=== PATIENT | female | born 1955 | race Caucasian/White ===

== ENCOUNTER 2022-02-02 06:37 | Observation (INO) ==
--- NOTE | 2022-01-04 14:46 | PAT Medication Instructions ---
Medication Instructions Date of Service January 04, 2022 Home Medications acetaminophen 500 mg tablet 1,000 mg PO TID ascorbate calcium (vitamin C) 500 mg tablet 500 mg PO QAM atenolol 50 mg tablet 50 mg PO QAM biotin 1 mg tablet 1 mg PO QAM cetirizine 10 mg tablet (Zyrtec) 10 mg PO QAM cholecalciferol (vitamin D3) 25 mcg (1,000 unit) tablet (Vitamin D3) 25 mcg PO QAM cyanocobalamin (vitamin B-12) 1,000 mcg tablet (Vitamin B-12) 1,000 mcg PO QAM duloxetine 60 mg capsule,delayed release (Cymbalta) 60 mg PO QAM glipizide 10 mg tablet 10 mg PO BID lisinopril 20 mg tablet 20 mg PO QAM loratadine 10 mg tablet 10 mg PO QAM pantoprazole 40 mg tablet,delayed release (Protonix) 40 mg PO BID rosuvastatin 20 mg tablet (Crestor) 20 mg PO HS semaglutide 1 mg/dose (2 mg/1.5 mL) subcutaneous pen injector 1 mg SUBCUT WK Continue as directed semaglutide 1 mg/dose (2 mg/1.5 mL) subcutaneous pen injector 1 mg SUBCUT WK (not day of surgery) STOP taking 2 weeks before surgery biotin 1 mg tablet 1 mg PO QAM DO NOT take the morning of surgery ascorbate calcium (vitamin C) 500 mg tablet 500 mg PO QAM atenolol 50 mg tablet 50 mg PO QAM cetirizine 10 mg tablet (Zyrtec) 10 mg PO QAM cholecalciferol (vitamin D3) 25 mcg (1,000 unit) tablet (Vitamin D3) 25 mcg PO QAM cyanocobalamin (vitamin B-12) 1,000 mcg tablet (Vitamin B-12) 1,000 mcg PO QAM glipizide 10 mg tablet 10 mg PO BID lisinopril 20 mg tablet 20 mg PO QAM loratadine 10 mg tablet 10 mg PO QAM Take morning of surgery With a small sip of water, OTHERWISE NOTHING TO EAT OR DRINK AFTER MIDNIGHT: acetaminophen 500 mg tablet 1,000 mg PO TID(okay to take up to 4 hours prior to surgery if needed) duloxetine 60 mg capsule,delayed release (Cymbalta) 60 mg PO QAM pantoprazole 40 mg tablet,delayed release (Protonix) 40 mg PO BID Take evening before surgery acetaminophen 500 mg tablet 1,000 mg PO TID(if needed) glipizide 10 mg tablet 10 mg PO BID pantoprazole 40 mg tablet,delayed release (Protonix) 40 mg PO BID rosuvastatin 20 mg tablet (Crestor) 20 mg PO HS Other Notes If you have any questions please call us at [phone] or [phone] or [phone] or [phone]
--- NOTE | 2022-01-08 13:33 | Anesthesiology Consultation ---
Date of Service January 08, 2022 Assessment & Plan (1) Encounter for pre-operative examination: - COVID screening: Per assessment on 01/08: No known COVID-19 positive contacts or current COVID-19 related symptoms. Travel screen- negative. Surgeon arranging preop COVID testing. Awaiting results. - Check BSG AM DOS Chart Review Chart Review: Acceptable Risk for Surgery and Patient seen in Pre Admission Testing History Surgery Operation Date: 02/02/22 09:30 Proposed Procedures p Left Total Hip Arthroplasty - Jeremy Montejo DO Height/Weight Height: 5 ft 8 in Weight: 81.2 kg Allergies Allergy/AdvReac Type Severity Reaction Status Date / Time Corticosteroids Allergy Intermediate heart Verified 01/04/22 09:37 (Glucocorticoids) palpitations, severe upset stomach morphine Allergy Intermediate severe Verified 01/04/22 09:37 itching and felt like "bugs were crawling on me" meloxicam [From Mobic] AdvReac Mild irritates Verified 01/04/22 09:37 stomach Medications Home Medications Medication Instructions Recorded Confirmed Last Taken acetaminophen 500 mg tablet 1,000 mg PO TID 01/04/22 01/04/22 Unknown ascorbate calcium (vitamin C) 500 500 mg PO QAM 01/04/22 01/04/22 Unknown mg tablet atenolol 50 mg tablet 50 mg PO QAM 01/04/22 01/04/22 Unknown biotin 1 mg tablet 1 mg PO QAM 01/04/22 01/04/22 Unknown cetirizine 10 mg tablet (Zyrtec) 10 mg PO QAM 01/04/22 01/04/22 Unknown cholecalciferol (vitamin D3) 25 25 mcg PO QAM 01/04/22 01/04/22 Unknown mcg (1,000 unit) tablet (Vitamin D3) cyanocobalamin (vitamin B-12) 1,000 mcg PO QAM 01/04/22 01/04/22 Unknown 1,000 mcg tablet (Vitamin B-12) duloxetine 60 mg capsule,delayed 60 mg PO QAM 01/04/22 01/04/22 Unknown release (Cymbalta) glipizide 10 mg tablet 10 mg PO BID 01/04/22 01/04/22 Unknown lisinopril 20 mg tablet 20 mg PO QAM 01/04/22 01/04/22 Unknown loratadine 10 mg tablet 10 mg PO QAM 01/04/22 01/04/22 Unknown pantoprazole 40 mg tablet,delayed 40 mg PO BID 01/04/22 01/04/22 Unknown release (Protonix) rosuvastatin 20 mg tablet (Crestor) 20 mg PO HS 01/04/22 01/04/22 Unknown semaglutide 1 mg/dose (2 mg/1.5 1 mg SUBCUT WK 01/04/22 01/04/22 Unknown mL) subcutaneous pen injector Past Medical History Medical History Allergic rhinitis Chronic back pain Diabetes mellitus, type 2 NIDDM Fibromyalgia Reason for cymbalta GERD (gastroesophageal reflux disease) Occasional Hiatal hernia History of COVID-19 06/2020 > symptoms at time: sore throat, ear pain > resolved Hyperlipidemia Hypertension Osteopenia Temporomandibular joint disorder Follows with dentist Has OTC mouth guard, no locking Exercise / Class Metabolic Activity II 4-5 Yardwork/Stairs/Walk up hill (one FS (no CP, no SOB)) Past Family History Family History Other No family history of adverse response to anesthesia Past Surgical History Surgical History History of appendectomy History of bilateral carpal tunnel release History of section x2 History of colonoscopy History of esophagogastroduodenoscopy (EGD) History of exploratory laparotomy for adhesions from c-sections History of hip surgery (~1999) left--pt states she had a cyst removed from her bone and a metal plate in place History of laparoscopy for endometriosis History of left breast biopsy benign History of tooth extraction History of total hysterectomy with bilateral salpingo-oophorectomy (BSO) Past Anesthesia History No Hx of Anesthesia Complications and No Family Hx of Anesthesia Complications History of PONV No Hx of PONV and No Hx of Motion Sickness Social History Smoking Status: Never smoker Do You Dip or Chew Tobacco: No Hx Alcohol Use: Yes alcohol intake frequency: holidays/special occasions only Hx Substance Use: No substance use type: does not use Review of Systems Patient denies chest pain, shortness of breath, dyspnea on exertion, fever, chills, cough, wheezing, palpitations. Physical Exam Vital Signs VITALS BP 103/72 P 85 TEMP 98.5 SP02 98%RA RESP 16 PHYSICAL Full cervical extension range of motion. Full TMJ range of motion. TMD 3.5 finger breaths Mallampati Score 1 Dentition: right upper side missing, upper/lower front repair Lungs: clear throughout to auscultation Cardiac: regular rate and rhythm, no murmurs noted Spine: normal Carotid arteries: negative bruit Extremities: no edema Lab Results Anesthesia Preop Results Results Anesthesia Widget: WBC 6.73 K/uL (4.8-10.8) 01/08/22 Hgb 13.4 g/dL (12.0-16.0) 01/08/22 Hct 40.6 % (37-47) 01/08/22 Plt 260 K/uL (130-400) 01/08/22 Na 141 mmol/L (136-145) 01/08/22 K 3.8 mmol/L (3.5-5.1) 01/08/22 Cl 106 mmol/L (98-107) 01/08/22 CO2 27 mmol/L (21-32) 01/08/22 BUN 16 mg/dl (6-23) 01/08/22 Creat 0.84 mg/dl (0.6-1.2) 01/08/22 Glucose Level 110 mg/dl (70-99(Fasting)) H 01/08/22 PT 10.9 Seconds (9.0-12.0) 01/08/22 PTT 23.6 Seconds (21.0-31.0) 01/08/22 INR 1.0 (0.9-1.1) 01/08/22 HA1c 6.4 % (4.5-5.6) H 01/08/22 Urine Color Dark Yellow 01/08/22 Urine Appearance Clear (Clear) 01/08/22 Urine pH 5.0 (4.5-7.5) 01/08/22 Urine Specific [place] 1.033 (1.000-1.030) H 01/08/22 Urine Protein Trace (Negative) H 01/08/22 Urine Glucose (UA) Negative (Negative) 01/08/22 Urine Ketones Trace (Negative) H 01/08/22 Urine Blood Negative (Negative) 01/08/22 Urine Nitrite Negative (Negative) 01/08/22 Urine Bilirubin 1+ (Negative) H 01/08/22 Urine Urobilinogen Negative (Negative) 01/08/22 Urine Leukocyte Esterase Trace (Negative) H 01/08/22 Urine WBC (Auto) 1-5 /hpf (0-5) 01/08/22 Urine RBC (Auto) 5-10 /hpf (0-4) H 01/08/22 Urine Hyaline Casts (Auto) 1-5 /lpf (0-5) 01/08/22 Urine Epithelial Cells (Auto) >30 /lpf (0-5) H 01/08/22 Urine Bacteria (Auto) Negative (Negative) 01/08/22 Blood Type A Positive 01/08/22 Antibody Screen NEGATIVE 01/08/22 Testing Electrocardiogram Date: 01/08/22 SR with first degree AVB at 79bpm. Otherwise normal ECG. Chest X-Ray Date: 01/08/22 Findings: + NAD
--- NOTE | 2022-02-01 14:37 | History & Physical Report ---
Date of Service February 01, 2022 Assessment & Plan (1) Osteoarthritis of left hip: Plan: Schedule a left total hip arthroplasty, removal DHS implant for 02/02/2022. All potential risks, benefits, complications, alternatives, and rehab have been discussed with the patient and she wishes to proceed. Plan for aspirin 81 mg twice daily x4 weeks for postoperative DVT prophylaxis. (2) Retained orthopedic hardware: History of Present Illness Chief Complaint: Left hip pain Primary Care Provider: NO PCP This is a patient who previously undergone what appears to be a left hip core decompression of the femoral head. She denies any previous injury to the left. She presented with left groin pain and a history of an implant placed within the femoral head. CT scan noted arthritic changes at the hip joint. She is now being set up for total hip arthroplasty. Allergies Allergy/AdvReac Type Severity Reaction Status Date / Time Corticosteroids Allergy Intermediate heart Verified 01/04/22 09:37 (Glucocorticoids) palpitations, severe upset stomach morphine Allergy Intermediate severe Verified 01/04/22 09:37 itching and felt like "bugs were crawling on me" meloxicam [From Mobic] AdvReac Mild irritates Verified 01/04/22 09:37 stomach Home Medications Medication Instructions Recorded Confirmed Type acetaminophen 500 mg tablet 1,000 mg PO TID 01/04/22 01/04/22 History ascorbate calcium (vitamin C) 500 500 mg PO QAM 01/04/22 01/04/22 History mg tablet atenolol 50 mg tablet 50 mg PO QAM 01/04/22 01/04/22 History biotin 1 mg tablet 1 mg PO QAM 01/04/22 01/04/22 History cetirizine 10 mg tablet (Zyrtec) 10 mg PO QAM 01/04/22 01/04/22 History cholecalciferol (vitamin D3) 25 25 mcg PO QAM 01/04/22 01/04/22 History mcg (1,000 unit) tablet (Vitamin D3) cyanocobalamin (vitamin B-12) 1,000 mcg PO QAM 01/04/22 01/04/22 History 1,000 mcg tablet (Vitamin B-12) duloxetine 60 mg capsule,delayed 60 mg PO QAM 01/04/22 01/04/22 History release (Cymbalta) glipizide 10 mg tablet 10 mg PO BID 01/04/22 01/04/22 History lisinopril 20 mg tablet 20 mg PO QAM 01/04/22 01/04/22 History loratadine 10 mg tablet 10 mg PO QAM 01/04/22 01/04/22 History pantoprazole 40 mg tablet,delayed 40 mg PO BID 01/04/22 01/04/22 History release (Protonix) rosuvastatin 20 mg tablet (Crestor) 20 mg PO HS 01/04/22 01/04/22 History semaglutide 1 mg/dose (2 mg/1.5 1 mg SUBCUT WK 01/04/22 01/04/22 History mL) subcutaneous pen injector Past Med/Surg History Medical History Allergic rhinitis Chronic back pain Diabetes mellitus, type 2 NIDDM Fibromyalgia Reason for cymbalta GERD (gastroesophageal reflux disease) Occasional Hiatal hernia History of COVID-19 06/2020 > symptoms at time: sore throat, ear pain > resolved Hyperlipidemia Hypertension Osteopenia Temporomandibular joint disorder Follows with dentist Has OTC mouth guard, no locking Surgical History History of appendectomy History of bilateral carpal tunnel release History of section x2 History of colonoscopy History of esophagogastroduodenoscopy (EGD) History of exploratory laparotomy for adhesions from c-sections History of hip surgery (~1999) left--pt states she had a cyst removed from her bone and a metal plate in place History of laparoscopy for endometriosis History of left breast biopsy benign History of tooth extraction History of total hysterectomy with bilateral salpingo-oophorectomy (BSO) Family History Other No family history of adverse response to anesthesia Social History Smoking Status: Never smoker Second Hand Exposure: No; Hx Alcohol Use: Yes Hx Substance Use: No Preferred Language: Sinhala Communication Ability: Effective Bi Data Architect Required: No Beliefs That Will Affect Care: None Current Living Situation: Spouse Feels Safe at Home: Yes Assistive Devices: Glasses Physical Exam Constitutional: well developed and well nourished; no acute distress ENMT: external ear and nose normal, oropharynx normal Neck: trachea midline Respiratory: normal respiratory effort, lungs clear to auscultation Cardiovascular: Rate/Rhythm: regular rate and regular rhythm Gastrointestinal (Abdomen): normal bowel sounds, soft, nontender, no hepatosplenomegaly Musculoskeletal: Hip: + surgical incision (Healed incision lateral hip), + limited ROM of hip (Left internal and external rotation), + joint line tenderness (Left groin) and + JOSS test positive (Left); no skin erythema and no ecchymosis Skin: no rashes, warm and dry Trauma: no evidence of skin trauma Neurologic: normal touch/pain/proprioception Psychiatric: A+Ox3, euthymic affect Speech: normal rate/rhythm/volume of speech Lymphatic: no cervical or axillary lymphadenopathy
[~2022-02-02 06:37] MED LIST: ACETAMINOPHEN 500 MG TAB PO SCH; BUPIVACAINE 0.5 % 5 MG/1 ML PF 10ML VIAL ONE; CeleBREX 200 MG CAP PO SCH; FAMOTIDINE 20 MG TAB PO SCH; GABAPENTIN 300 MG CAP PO SCH; LR 500ML BOLUS, THEN 15ML/HR IV SCH; METOCLOPRAMIDE HCL 10 MG TABLET PO SCH; ROPIVACAINE 0.5% HCL/PF 150 MG, BUPIVACAINE 0.75% MPF 20 ML, EPINEPHrine 30MG/30ML (OR ... INFIL SCH; TRANEXAMIC ACID 1,000 MG **IV Intra-op IV SCH; TRANEXAMIC ACID 1,000 MG **IV Pre-op IV SCH; ceFAZolin 2000MG 2,000 MG/15 ML SYR IV SCH; dexAMETHasone 4 MG TAB PO SCH
[2022-02-02] MEDS ORDERED: PROPOFOL IV EMULSION 10 MG/ML 20 ML VIAL IV ONE ×5 (06:58→11:54)
[2022-02-02] MEDS ORDERED: fentaNYL citrate 100 MCG/2 ML VIAL ONE (06:58)
[2022-02-02] MEDS ORDERED: LIDOCAINE 2% 2 ML VIAL/AMP(20MG/ML) INFIL ONE (06:58)
[2022-02-02] MEDS ORDERED: MIDAZOLAM HCL 1 MG/ML 2ML VIAL ONE (06:58)
--- NOTE | 2022-02-02 07:21 | History & Physical Bridge Note ---
Date of Service February 02, 2022 History & Physical Bridge Note I have examined the patient, reviewed the History & Physical and in the interval since the performance of the History & Physical I have noted the following changes of clinical significance: no changes noted
[2022-02-02] MEDS ORDERED: ORTHO JOINT ANESTHETIC ONE (08:03)
[2022-02-02] MEDS ORDERED: ATROPINE SULFATE 0.1 MG/ML 10ML SYR IV PRN (08:18)
[2022-02-02] MEDS ORDERED: ONDANSETRON INJ 2 MG/ML 2 ML VIAL IV PRN ×2 (08:18→14:37)
[2022-02-02] MEDS ORDERED: fentaNYL citrate 100 MCG/2 ML VIAL IV PRN (08:18)
[2022-02-02] MEDS ORDERED: ePHEDrine sulfate 50 MG/ML AMP IV PRN (08:18)
[2022-02-02] MEDS ORDERED: ceFAZolin 330 MG/ML 1 GM VIAL ONE (08:51)
[2022-02-02] MEDS ORDERED: KETAMINE 50 MG/5 ML SYRINGE ONE (10:06)
[2022-02-02] MEDS ORDERED: LABETALOL HCL IV 5 MG/ML 20ML IV ONE ×2 (10:21→10:57)
[2022-02-02] MEDS ORDERED: ceFAZolin 1000MG 1,000 MG/7.5 ML SYR IV ONE (11:43)
[2022-02-02] MEDS ORDERED: ONDANSETRON INJ 2 MG/ML 2 ML VIAL ONE (11:53)
--- NOTE | 2022-02-02 12:30 | Post Operative Brief Note ---
Immediate Post Op Note v1 Date of Surgery February 02, 2022 Pre & Post Diagnosis Operation Date: 02/02/22 08:45 Pre-Op Diagnosis: Left Hip posttraumatic osteoarthritis, painful hip hardware DHS sideplate and screws Post-Op Diagnosis: Left Hip posttraumatic osteoarthritis, painful hip hardware DHS sideplate and screws I identified the patient and participated in the time-out.: Yes Procedure Operation Date: 02/02/22 08:45 Actual Procedures p 1. Left Cemented Total Hip Arthroplasty with Ethel Accolade C cemented hip stem, Trident X3 10 degree polyethylene, Trident II 52 mm acetabular shell, 6.5 mm locking screws x2, Biolox delta 36 mm x +5 mm femoral head and distal cement spacer. 2. Hardware Removal of the painful hardware DHS sideplate and screws Jeremy Montejo DO Surgeon Jeremy Montejo DO Relay Shop Supervisor Eric Perez PA-C Estimated Blood Loss 200 Findings Consistent with Post-Op Diagnosis Drains Hemovac Drain (dual trocar) Anesthesia Type Spinal MAC Complications none Disposition Accompanied Patient To Recovery: No Overlapping Procedure I was present for: the critical portions of procedure. I was immediately available: during the entire case.
--- NOTE | 2022-02-02 13:41 | Anesthesiology Progress Note ---
Date of Service February 02, 2022 Anesthesia Post Procedure Vital Signs Vital Signs: Temp Pulse Resp BP Pulse Ox 02/02/22 13:15 76 14 100/67 93 02/02/22 13:05 98.8 F 69 13 117/66 99 02/02/22 12:55 80 14 111/63 100 02/02/22 12:45 82 20 119/79 100 02/02/22 12:35 75 13 119/60 100 02/02/22 12:29 97.5 F L 80 12 106/70 95 02/02/22 07:08 98.1 F 82 16 129/73 96 Pain Intensity Left Hip: Pain Intensity: 4 Transfer of Care Handoff Completed per policy Notes Mental Status: alert / awake / arousable and participated in evaluation Patient Amnestic to Procedure: Yes Nausea / Vomiting: adequately controlled Pain: adequately controlled Airway Patency, RR, SpO2: stable & adequate BP & HR: stable & adequate Hydration State: stable & adequate Neuraxial Anesthesia: was administered and sensory block is resolving Anesthetic Complications: no major complications apparent and Pt Satisfied with anesthetic care
--- NOTE | 2022-02-02 13:58 | XRay Report ---
XR hip 1V LT w pelvis CLINICAL HISTORY: IN PACU - A/P PELVIS and LATERAL HIP . Status post left total hip replacement COMPARISON STUDY: No previous studies for comparison. TECHNIQUE: 2 left hip views FINDINGS: The patient is status post total hip replacement. The prosthetic components are in anatomic alignment with no acute abnormality seen. Skin celine are seen from the recent procedure. IMPRESSION: 1. Status post total hip replacement ACT 112: Negative or not required by law. Electronically signed by: Herman Felix M.D. 02/02/2022 1:57 PM
[2022-02-02] MEDS ORDERED: HYDROmorphone INJ 0.5 MG/0.5 ML SYR IV PRN (14:37)
[2022-02-02] MEDS ORDERED: PHARMACY GLYCEMIC MGMT CONSULT PRN (14:37)
[2022-02-02] MEDS ORDERED: NALOXONE HCL 0.4 MG/1 ML VIAL/CARP IV PRN (14:37)
[2022-02-02] MEDS ORDERED: diphenhydrAMINE 50 MG/ML VIAL IV PRN (14:37)
[2022-02-02] MEDS ORDERED: bisacodyL 10 MG SUPP PR PRN (14:37)
[2022-02-02] MEDS ORDERED: MAGNESIUM HYDROXIDE SUSP 30 ML UDC PO PRN (14:37)
--- NOTE | 2022-02-02 14:51 | Pharmacy Report ---
Pharmacy Glycemic Short Note 2 - Date of Service February 02, 2022 - Glycemic Short BSG Results (Last 24 hours): 02/02/22 02/02/22 07:08 12:34 POC Glucose 108 H 209 H OUTPATIENT ANTIDIABETIC REGIMEN: * glipizide 10 mg PO BID * Ozempic 1 mg SQ weekly * HbA1C = 6.4% (01/08/22) ASSESSMENT: * Ms Salgado is a 66 y/o F with a PMH of T2DM who presents for L hip surgery. Patient received dexamethasone 8 mg PO prior to surgery. * Patient's preop BSGs are 108 mg/dL and over surgery was 209 mg/dL. * For steroid hyperglycemia, will start NPH 20 units (0.2 units/kg) x 1. Lower dose utilized since not given with steroids. * Will utilize Novolog weight-based stress of 3. Overnight checks for 24 hour glucose control. * Hold glipizide while hospitalized. PLAN FOR INPATIENT GLYCEMIC CONTROL: * Hold outpatient oral diabetes medications * Basal insulin * NPH 20 units SQ x 1 * Bolus insulin * NovoLog per scale ACHS or Q6hrs while NPO * Goal Range: Low 110 mg/dL - High 140 mg/dL * Correction Factor: 20 mg/dL/unit * Nutritional / Prandial insulin per carb ratio of 1 unit per 6 grams CHO consumed
[2022-02-02] MEDS: ACETAMINOPHEN 500 MG TAB PO SCH ×2 (15:13→21:01)
[2022-02-02] MEDS: SODIUM CHLORIDE 0.9% 1000ML 1,000 ML IV SCH (15:14)
[2022-02-02] MEDS ORDERED: GLUCOSE 40% GEL 15 GM TUBE PO PRN (15:15)
[2022-02-02] MEDS ORDERED: GLUCAGON FOR INJ 1 MG VIAL IM PRN (15:15)
[2022-02-02] MEDS ORDERED: CARBOHYDRATES FOR HYPOGLYCEMIA PO PRN (15:15)
[2022-02-02] MEDS ORDERED: GLUCOSE 10 TABS/TUBE PO PRN (15:15)
[2022-02-02] MEDS ORDERED: DEXTROSE 50% 50 ML SYRINGE IV PRN (15:15)
[2022-02-02] MEDS ORDERED: NovoLIN-N (NPH) PER UNIT CHARGE SQ ONE (16:30)
--- NOTE | 2022-02-02 16:55 | Operative Report (OR) ---
DATE OF PROCEDURE: 02/02/2022. PREOPERATIVE DIAGNOSES: 1. Left hip posttraumatic osteoarthritis. 2. Painful hip hardware, DHS side plate and screws. POSTOPERATIVE DIAGNOSES: 1. Left hip posttraumatic osteoarthritis. 2. Painful hip hardware, DHS side plate and screws. PROCEDURE: 1. Left cemented total hip arthroplasty with Ethel Accolade C cemented hip stem, Trident X3 10-deg ree polyethylene, Trident II 52 mm acetabular shell, 6.5 mm locking screws x2, Biolox Delta 36 mm x + 5 mm femoral head and distal cement spacer. 2. Hardware removal of painful hardware DHS side plate and screws. SURGEON: Jeremy Montejo DO. BUSINESS CONTINUITY DIRECTOR: Eric Perez PA-C who was present for patient positioning, sterile prep and drape, m anagement of retractors and instruments. He was present through the critical portions of the case inc luding wound closure, application of sterile dressing and transport of the patient to recovery. ANESTHESIA: Spinal MAC with local. SPECIMENS: Bone and tissue, left hip. DRAINS: Hemovac x2. COMPLICATIONS: None. BLOOD LOSS: 200 mL PERTINENT HISTORY: This is a 66-year-old female who had a prior ORIF of a left proximal femoral frac ture. She healed from the fracture and did notably well for the last several years; however, then be [place] having hip pain which was progressive and worsening in nature over the last 2 years. The patient then presented to the office. She had radiographs and a CT scan, noted to have posttraumatic osteoa rthritis. She failed all conservative measures including physical therapy, anti-inflammatories, rest , observation, physician-directed home exercises, weight loss and shoe wear modification including us e of an assistive device. The patient's radiographs demonstrate sclerosis, loss of joint space, lisa inal osteophytes, subchondral sclerosis. The patient was then scheduled for surgery as indicated wit h the removal of the hardware and total hip arthroplasty. All potential risks, benefits, complications, alternatives, rehab potential for incomplete relief sym ptoms, need for further surgery, DVT, PE, , persistent pain, swelling, scarring, weakness, neuro vascular injury, wound complications, hardware failure, nonunion, malunion, bone fracture were discus sed with the patient. The patient decided to proceed with the procedure as indicated. PROCEDURE: The patient was taken to the Operating Suite and placed supine on the Operating Room table after identification of the consent and identification of the proper operative site the patient was sedated. The patient had previously received a spinal epidural anesthetic. The patient was then place d in the left lateral decubitus position with the affected side up and Stulberg positioning device th en used to maintain lateral position of the patient. All bony prominences were properly padded and pr otected. Axillary roll was placed as standard and the leg lengths were determined to be essentially e qual and then the left hip was then sterilely prepped and draped in the usual fashion. 10-blade scalp el incision was made laterally over the greater trochanter. The incision was deepened through the sub cutaneous tissue and meticulous hemostasis with electrocautery. Further deepening of the wound throug h the layer of the fascia was performed with electrocautery and iliotibial band was then incised with electrocautery. Next, Charnley retractor was placed bother anteriorly and posteriorly at the level o f the gluteus tendon. Next, electrocautery was used to make an incision in the vastus lateralis and t hen sweep was made toward the anterior aspect of the patient along the course of the femoral neck and head. Abductor split was then completed. The gluteus minimus and capsule were then incised and then soft tissue was dissected anteriorly. Next as the soft tissue was dissected anteriorly the lesser tro chanter was clearly identified and hip was dislocated with relative ease. Hypertrophic osteophytes we re noted circumferentially. The hip joint was noted to be noticeably tight. Next the sagittal saw was used to resect the proximal portion of the femoral neck and head approximately one fingerbreadth pro ximal to the lesser trochanter. Head was then removed and next the labrum was excised from the acetab ulum with a 27 blade scalpel and long forceps. Next the wound was irrigated with pulsatile lavage and the pulvinar was then excised from the acetabulum. Appropriate retractors were placed anteriorly sup eriorly and posteriorly. Next initial acetabular reamer was placed 44 mm medialized to the medial wal l and then sequential reaming was performed to size 56 mm. Trial cage was then placed and noted to be stable with excellent fit. Next the wound was irrigated with pulsatile lavage with bacitracin additi ve and 56 mm [place] trident PSL cup was impacted and then two 6.5 mm locking screws were used to sta bilize the acetabular shell. Next Trident X3 10-degree polyethylene, Trident II 52 mm acetabular obey l was impacted into the shell. Lap sponge was placed over to protect it. Next, attention was turned t oward the proximal femur. Box osteotome was used to resect proximal portion of bone followed by first pass small reamer. Next, sequential broaching was performed up to size 5 and the 5 trial was placed followed by +0 36 mm trial head. Next, it was reduced and had excellent fit and feel with minimal maday ck and excellent stability in all planes and range of motion. Leg lengths were restored and next all trial implants were removed. The wound was copiously irrigated with pulsatile lavage and size 5 Stryk er Accolade C cemented hip stem was impacted. Next, Biolox Delta 36 mm x +5 mm femoral head and dista l cement spacer was impacted. The construct was reduced. Range of motion was performed and noted to b e completely stable with excellent range of motion, improved to greater degree than prior to surgery. Two 10 [place]kin[place] single Hemovac drains were placed exiting anterolaterally. Wound was irrigated with pu lsatile lavage. Next a #5 Tycron suture was used to close the capsule and gluteus minimum via two sma ll bone gunnels made with 2.4 mm drill bit in the greater trochanter. After Tycron closure was comple [place] and noted to be stable then 10 Burkinan drains were placed followed by closure of the vastus latera lis and the gluteus medius. This was closed with #1 Vicryl sutures. Next, the iliotibial band was leslie sed using interrupted [id number] #1 Vicryl sutures. Next, final irrigation was performed with pu lsatile lavage and dermis was closed using buried interrupted 2-0 Vicryl suture. The skin was closed with skin celine. Sterile compressive dressing was applied. The patient was then placed supine and krys gomes to recovery in stable condition. Job ID: [id number]
[2022-02-02] MEDS: oxyCODONE HCL IR 5 MG TAB (IMMEDIATE RELEASE) PO PRN ×2 (17:03→18:49)
--- NOTE | 2022-02-02 17:36 | Consultation ---
Date of Consultation February 02, 2022 Assessment & Plan (1) Osteoarthritis of left hip: (2) Retained orthopedic hardware: OA left hip s/p left total hip arthroplasty and removal of DHS implant today 02/02/22 - further management including diet, DVT ppx, pain management and activities per primary team Actual procedure 02/02/22- Left cemented total hip arthroplasty with [place] Accolade C cemented hip stem, Trident X3 10-degree polyethylene, Trident II 52 mm acetabular shell, 6.5 mm locking screws x2, Biolox Delta 36 mm x +5 mm femoral head and distal cement spacer; Hardware removal of painful hardware DHS side plate and screws DM-2, well controlled- A1c 6.4 on 01/08. on glipizide and ozempic at home- will hold. Started on insulin- being managed by glycemic pharmacist - States she gets symptomatic hypoglycemia few times a week at home with BG in high 60s and 70s- recommended to follow up with PCP for further diabetic management- Goal is to safely lower A1c with as few hypoglycemic events as possible- Patient verbalized understanding. GERD- on PPI HTN- on lisinopril, tenormin with hold parameters HLD- on statin DVT ppx- on ASA bid per primary team Dispo- per primary team History of Present Illness Reason for Consultation: Post op management Attending Physician: Jeremy Montejo DO History of Present Illness 66-year-old female with h/o prior ORIF of a left proximal femoral fracture with left hip who did well for several years but then started having progressively worsening hip pain over the past 2 years for which she was seen in the office and imagings showed posttraumatic osteoarthritis. She failed all conservative measures and hence was scheduled for elective surgery today with the removal of the hardware and total hip arthroplasty. She was seen at bedside post operatively. She is doing fine. Pain is relatively controlled. Tolerating oral intake well. No N/V. No chest pain or shortness of breath. Denies any cardiopulmonary issues. Denies any VTE. Her medications were reviewed. Allergies Allergy/AdvReac Type Severity Reaction Status Date / Time Corticosteroids Allergy Intermediate heart Verified 02/02/22 07:02 (Glucocorticoids) palpitations, severe upset stomach morphine Allergy Intermediate severe Verified 02/02/22 07:02 itching and felt like "bugs were crawling on me" meloxicam [From Mobic] AdvReac Mild irritates Verified 02/02/22 07:02 stomach Home Medications Medication Instructions Recorded Confirmed Type acetaminophen 500 mg tablet 1,000 mg PO TID 01/04/22 02/02/22 History ascorbate calcium (vitamin C) 500 500 mg PO QAM 01/04/22 02/02/22 History mg tablet atenolol 50 mg tablet 50 mg PO QAM 01/04/22 02/02/22 History biotin 1 mg tablet 1 mg PO QAM 01/04/22 02/02/22 History cetirizine 10 mg tablet (Zyrtec) 10 mg PO QAM 01/04/22 02/02/22 History cholecalciferol (vitamin D3) 25 25 mcg PO QAM 01/04/22 02/02/22 History mcg (1,000 unit) tablet (Vitamin D3) cyanocobalamin (vitamin B-12) 1,000 mcg PO QAM 01/04/22 02/02/22 History 1,000 mcg tablet (Vitamin B-12) duloxetine 60 mg capsule,delayed 60 mg PO QAM 01/04/22 02/02/22 History release (Cymbalta) glipizide 10 mg tablet 10 mg PO BID 01/04/22 02/02/22 History lisinopril 20 mg tablet 20 mg PO QAM 01/04/22 02/02/22 History loratadine 10 mg tablet 10 mg PO QAM 01/04/22 02/02/22 History pantoprazole 40 mg tablet,delayed 40 mg PO BID 01/04/22 02/02/22 History release (Protonix) rosuvastatin 20 mg tablet (Crestor) 20 mg PO HS 01/04/22 02/02/22 History semaglutide 1 mg/dose (2 mg/1.5 1 mg SUBCUT WK 01/04/22 02/02/22 History mL) subcutaneous pen injector Patient History Medical History Allergic rhinitis Chronic back pain Diabetes mellitus, type 2 NIDDM Fibromyalgia Reason for cymbalta GERD (gastroesophageal reflux disease) Occasional Hiatal hernia History of COVID-19 06/2020 > symptoms at time: sore throat, ear pain > resolved Hyperlipidemia Hypertension Osteopenia Temporomandibular joint disorder Follows with dentist Has OTC mouth guard, no locking Surgical History History of appendectomy History of bilateral carpal tunnel release History of section x2 History of colonoscopy History of esophagogastroduodenoscopy (EGD) History of exploratory laparotomy for adhesions from c-sections History of hip surgery (~1999) left--pt states she had a cyst removed from her bone and a metal plate in place History of laparoscopy for endometriosis History of left breast biopsy benign History of tooth extraction History of total hysterectomy with bilateral salpingo-oophorectomy (BSO) Family History Other No family history of adverse response to anesthesia Social History Smoking Status: Never smoker Second Hand Exposure: No; Do You Dip or Chew Tobacco: No; Tobacco Cessation Education Requested by Patient: No Hx Alcohol Use: Yes Hx Substance Use: No Preferred Language: Greenlandic Communication Ability: Effective 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 Beliefs That Will Affect Care: None Current Living Situation: Spouse Other Information That Helps Us Care for You: No Feels Safe at Home: Yes Safety Concerns: Feels Safe At This Time Assistive Devices: Glasses Assistive Devices Comment: reading glasses Review of Systems Review of Systems: All systems reviewed & are unremarkable except as noted in Subjective Physical Exam Physical Exam: General: Lying comfortably in bed, not in distress, on room air HEENT: EOMI, SHAWNA, MMM Chest: Clear breath sounds bilaterally, no wheezes or crackles CVS: Regular rate and rhythm, normal heart sounds, no murmur Abdomen: Soft, non tender, not distended, normal bowel sounds Neuro: Awake, alert, oriented, conversing well, non focal Extremities: Left hip covered with dressing and ice pack, hemovac suction in place with some output Results & Data ([facility]) Vital Signs (Past 12 Hours) Vital Signs Temp Pulse Pulse Resp BP BP Pulse Ox 02/02/22 17:12 36.5 C 88 16 108/62 95 02/02/22 16:10 36.7 C 79 16 101/65 96 02/02/22 15:02 36.7 C 84 16 112/66 96 02/02/22 14:36 36.4 C L 78 16 95/59 L 95 02/02/22 14:05 36.6 C 83 16 100/60 96 02/02/22 13:50 36.8 C 78 20 106/60 95 02/02/22 13:35 81 20 103/60 94 02/02/22 13:25 79 20 96/65 L 98 02/02/22 13:15 76 14 100/67 93 02/02/22 13:05 37.1 C 69 13 117/66 99 02/02/22 12:55 80 14 111/63 100 02/02/22 12:45 82 20 119/79 100 02/02/22 12:35 75 13 119/60 100 02/02/22 12:29 36.4 C L 80 12 106/70 95 02/02/22 07:08 36.7 C 82 16 129/73 96 Laboratory Results Short CBC 02/02/22 02/02/22 02/02/22 Range/Units 07:08 12:34 14:54 POC Glucose 108 H 209 H 173 H (70-99) mg/dl 02/02/22 Range/Units 17:11 POC Glucose 180 H (70-99) mg/dl Medications Administered Current Inpatient Medications Acetaminophen (Acetaminophen 500 Mg Tab) 1,000 mg PO Q8 [facility] Stop: 03/04/22 14:59 Last Admin: 02/02/22 15:13 Dose: 1,000 mg Documented by: Ascorbic Acid (Ascorbic Acid 500 Mg Tab) 500 mg PO QAM [facility] Stop: 03/05/22 08:59 Aspirin (Aspirin 81 Mg Ectab) 81 mg PO BID [facility] Stop: 03/04/22 20:59 Atenolol (Atenolol 50 Mg Tablet) 50 mg PO QAM [facility] Stop: 03/05/22 08:59 Bisacodyl (Bisacodyl 10 Mg Supp) 10 mg HI DAILY PRN PRN Reason: Constipation Stop: 03/04/22 14:36 Cyanocobalamin (Cyanocobalamin (B-12) 500 Mcg Tablet) 1,000 mcg PO QAM [facility] Stop: 03/05/22 08:59 Dextrose (Dextrose 50% 50 Ml Syringe) 25 - 50 ml IV UD PRN; Protocol PRN Reason: Hypoglycemia Protocol Stop: 03/04/22 15:14 Diphenhydramine HCl (Diphenhydramine 50 Mg/Ml Vial) 25 mg IV Q8H PRN PRN Reason: Itching Stop: 03/04/22 14:36 Docusate Sodium (Docusate Sodium 100 Mg Cap) 100 mg PO BID [facility] Stop: 03/04/22 20:59 Duloxetine HCl (Duloxetine Hcl 60 Mg Cap) 60 mg PO QAM [facility] Stop: 03/05/22 08:59 Glucagon (Glucagon For Inj 1 Mg Vial) 1 mg IM UD PRN; Protocol PRN Reason: Hypoglycemia Protocol Stop: 03/04/22 15:14 Glucose (Glucose 40% Gel 15 Gm Tube) 15 - 30 gm PO UD PRN; Protocol PRN Reason: Hypoglycemia Protocol Stop: 03/04/22 15:14 Glucose (Glucose 10 Tabs/Tube) 4 - 8 tabs PO UD PRN; Protocol PRN Reason: Hypoglycemia Protocol Stop: 03/04/22 15:14 Hydromorphone HCl (Hydromorphone Inj 0.5 Mg/0.5 Ml Syr) 0.5 mg IV Q4H PRN PRN Reason: Pain or Pre PT Stop: 02/16/22 14:36 Sodium Chloride (Nss 1000ml) 1,000 mls @ 100 mls/hr IV .Q10H [facility] Stop: 02/03/22 06:00 Last Admin: 02/02/22 15:14 Dose: 100 mls/hr Documented by: Cefazolin Sodium (Ancef 2000mg) 2,000 mg in 15 mls @ 3.75 mls/min IV Q8H [facility]; Protocol Stop: 02/03/22 02:48 Insulin Aspart (Insulin Aspart Per Unit) 0 units SC ACHS [facility] Stop: 03/04/22 16:29 Last Admin: 02/02/22 17:43 Dose: 9 units Documented by: Insulin Aspart (Insulin Aspart Per Unit) 0 units SC 0000,[id number] [facility] Stop: 02/03/22 04:01 Lisinopril (Lisinopril 20 Mg Tab) 20 mg PO QAM [facility] Stop: 03/05/22 08:59 Loratadine (Loratadine 10 Mg Tab) 10 mg PO QAM [facility] Stop: 03/05/22 08:59 Magnesium Hydroxide (Magnesium Hydroxide Susp 30 Ml Udc) 30 ml PO Q6H PRN PRN Reason: Constipation Stop: 03/04/22 14:36 Miscellaneous (Carbohydrates For Hypoglycemia ) 15 - 30 gm PO UD PRN PRN Reason: Hypoglycemia Treatment Stop: 03/04/22 15:14 Miscellaneous Information (Pharmacy Glycemic Mgmt Consult) 1 ea N/A UD PRN PRN Reason: Consult Stop: 03/04/22 14:36 Multivitamins (Multivitamin Tab) 1 tab PO QAM [facility] Stop: 03/05/22 08:59 Naloxone HCl (Naloxone Hcl 0.4 Mg/1 Ml Vial/Carp) 0.1 mg IV Q5M PRN PRN Reason: Oversedation/Resp Depression Stop: 03/04/22 14:36 Ondansetron HCl (Ondansetron Inj 2 Mg/Ml 2 Ml Vial) 4 mg IV Q6H PRN PRN Reason: Nausea And Vomiting Stop: 03/04/22 14:36 Oxycodone HCl (Oxycodone Hcl Ir 5 Mg Tab (Immediate Release)) 5 - 10 mg PO Q4H PRN PRN Reason: Pain or Pre PT Stop: 02/16/22 14:36 Last Admin: 02/02/22 17:03 Dose: 5 mg Documented by: Pantoprazole Sodium (Pantoprazole 40 Mg Tab) 40 mg PO BID [facility] Stop: 03/04/22 20:59 Rosuvastatin Calcium (Rosuvastatin Calcium 20 Mg Tab) 20 mg PO HS [facility] Stop: 03/04/22 20:59 Sennosides (Senna 8.6 Mg Tab) 17.2 mg PO HS [facility] Stop: 03/04/22 20:59 Vitamin D (Cholecalciferol 1,000 Units 25 Mcg Tab) 1,000 units PO QAM [facility] Stop: 03/05/22 08:59
[2022-02-02] MEDS: INSULIN ASPART PER UNIT SC SCH ×2 (17:43→21:05)
[2022-02-02] MEDS: ceFAZolin 2000MG 2,000 MG/15 ML SYR IV SCH (18:49)
[2022-02-02] MEDS: ASPIRIN 81 MG ECTAB PO SCH (20:53)
[2022-02-02] MEDS: PANTOprazole 40 MG TAB PO SCH (20:53)
[2022-02-02] MEDS: DOCUSATE SODIUM 100 MG CAP PO SCH (20:53)
[2022-02-02] MEDS ORDERED: MELATONIN 3 MG TAB PO SCH (21:00)
[2022-02-02] MEDS ORDERED: ROSUVASTATIN CALCIUM 20 MG TAB PO SCH (21:00)
[2022-02-02] MEDS ORDERED: glipiZIDE 5 MG TAB PO SCH (21:00)
[2022-02-02] MEDS ORDERED: SENNA 8.6 MG TAB PO SCH (21:00)
[2022-02-03] MEDS: INSULIN ASPART PER UNIT SC SCH ×4 (00:55→12:53)
[2022-02-03] MEDS: SODIUM CHLORIDE 0.9% 1000ML 1,000 ML IV SCH (01:59)
[2022-02-03] MEDS: ceFAZolin 2000MG 2,000 MG/15 ML SYR IV SCH (04:19)
[2022-02-03] MEDS: ACETAMINOPHEN 500 MG TAB PO SCH ×2 (05:43→13:03)
[2022-02-03] MEDS: oxyCODONE HCL IR 5 MG TAB (IMMEDIATE RELEASE) PO PRN ×3 (05:43→13:03)
[2022-02-03 05:56] LABS: BUN Creatinine Ratio 23.1 (10-20); Calcium 8.2 mg/dl (8.5-10.1); Creatinine Clr Calc Pharmacy 68.7 ml/min; Est GFR (African American) 76.7 ml/min; Est GFR (Non-African American) 66.2 ml/min; Potassium 4.4 mmol/L (3.5-5.1)
[2022-02-03 06:30] LABS: Hematocrit (blood only) 28.2 % (37-47); Hemoglobin 9.4 g/dL (12.0-16.0); Immature Granulocytes # (auto) 0.03 K/uL (0.00-0.02); Immature Granulocytes % (auto) 0.2 %; Lymphocytes # (auto) 1.64 K/uL (1.2-3.4); Lymphocytes % (auto) 12.4 %; Mean Corpuscular Hemoglobin 31.9 pg (25-34); Mean Corpuscular Hgb Conc 33.3 g/dL (32-36); Mean Corpuscular Volume 95.6 fL (80-100); Mean Platelet Volume 9.7 fL (7.4-10.4); Monocytes # (auto) 0.71 K/uL (0.11-0.59); Monocytes % (auto) 5.4 %; Neutrophils # (auto) 10.88 K/uL (1.4-6.5); Platelet Count 224 K/uL (130-400); RDW Coefficient of Variation 12.6 % (11.5-14.5); RDW Standard Deviation 43.7 fL (36.4-46.3); Red Blood Count 2.95 M/uL (4.2-5.4); White Blood Count 13.26 K/uL (4.8-10.8)
[2022-02-03] MEDS: PANTOprazole 40 MG TAB PO SCH (08:08)
[2022-02-03] MEDS: DOCUSATE SODIUM 100 MG CAP PO SCH (08:08)
[2022-02-03] MEDS: ASPIRIN 81 MG ECTAB PO SCH (08:09)
[2022-02-03] MEDS ORDERED: CHOLECALCIFEROL 1,000 UNITS 25 MCG TAB PO SCH (09:00)
[2022-02-03] MEDS ORDERED: ATENOLOL 50 MG TABLET PO SCH (09:00)
[2022-02-03] MEDS ORDERED: MULTIVITAMIN TAB PO SCH (09:00)
[2022-02-03] MEDS ORDERED: CYANOCOBALAMIN (B-12) 500 MCG TABLET PO SCH (09:00)
[2022-02-03] MEDS ORDERED: DULoxetine HCL 60 MG CAP PO SCH (09:00)
[2022-02-03] MEDS ORDERED: lisinopril 20 MG TAB PO SCH (09:00)
[2022-02-03] MEDS ORDERED: LORATADINE 10 MG TAB PO SCH (09:00)
[2022-02-03] MEDS ORDERED: ASCORBIC ACID 500 MG TAB PO SCH (09:00)
[2022-02-03] MEDS ORDERED: CETIRIZINE HCL 10 MG TABLET PO SCH (09:00)
--- NOTE | 2022-02-03 10:07 | Orthopedic Progress Note ---
Date of Service February 03, 2022 Assessment & Plan (1) Osteoarthritis of left hip: Plan: Plan for discharge today if does well with therapy. DVT prophylaxis- MIGDALIA, ASA BID Home with Admission and Anticipated Discharge Date Admission Date: February 02, 2022 Supervising Physician Co-Signing Physician Notes Patient seen and examined. Agree with VIRGIE Dennis's note as above. Patient doing well after left total hip arthroplasty yesterday. Ambulating with therapy. Hip precautions reviewed. As long she does well with therapy, plan for discharge home today. Subjective Patient sitting in chair resting comfortably. Denies any complaints today. Pain controlled. Physical Exam Physical Exam: Toes mobile, NVI. Calves soft, non tender. Dressing in place. Hemovac draining Results & Data ([facility]) Vital Signs (Past 12 Hours) Vital Signs Temp Pulse Resp BP BP Pulse Ox 02/03/22 07:37 36.7 C 92 H 17 102/63 95 02/03/22 04:01 36.8 C 81 16 97/55 L 94 02/02/22 23:14 36.7 C 86 16 98/59 L 95
--- NOTE | 2022-02-03 10:46 | Hospitalist Progress Note ---
Date of Service February 03, 2022 Assessment & Plan (1) Osteoarthritis of left hip: (2) Retained orthopedic hardware: Plan: Posttraumatic left hip OA and painful hip hardware s/p left total hip arthroplasty and removal of DHS implant today 02/02/22 - further management including diet, DVT ppx, pain management and activities per primary team Actual procedure 02/02/22- Left cemented total hip arthroplasty with [place] Accolade C cemented hip stem, Trident X3 10-degree polyethylene, Trident II 52 mm acetabular shell, 6.5 mm locking screws x2, Biolox Delta 36 mm x +5 mm femoral head and distal cement spacer; Hardware removal of painful hardware DHS side plate and screws DM-2, well controlled- A1c 6.4 on 01/08. Here on insulin being managed by glycemic pharmacist. Resume home meds at discharge but recommended OP follow up with her PCP for further management of her meds to prevent the hypoglycemic episodes she is encountering. Goal is to safely lower A1c with as few hypoglycemic events as possible- Patient verbalized understanding. GERD- on PPI HTN- on lisinopril, tenormin with hold parameters HLD- on statin Leucocytosis- likely due to periop steroids vs reactive. No concern for infection at this point. Looks well and feels fine. DVT ppx- on ASA bid per primary team Dispo- Discharge per primary team. Patient is stable from hospitalist perspective. Admission and Anticipated Discharge Date Admission Date: February 02, 2022 Subjective Feels fine. Pain controlled with pain medication. Did not get much sleep last time due to multiple interruptions. No N/V. Normal oral intake. No lightheadedness, dizziness. Voiding without issues. Passing gas, no BM. Physical Exam Physical Exam: General: Sitting comfortably in chair, not in distress, on room air HEENT: EOMI, SHAWNA, MMM Chest: Clear breath sounds bilaterally, no wheezes or crackles CVS: Regular rate and rhythm, normal heart sounds, no murmur Abdomen: Soft, non tender, not distended, normal bowel sounds Neuro: Awake, alert, oriented, conversing well, non focal Extremities: Left hip covered with dressing and ice pack, hemovac suction in place with some output Results & Data Results & Data ([facility]) Vital Signs (Past 12 Hours) Vital Signs Temp Pulse Resp BP BP Pulse Ox 02/03/22 07:37 36.7 C 92 H 17 102/63 95 02/03/22 04:01 36.8 C 81 16 97/55 L 94 02/02/22 23:14 36.7 C 86 16 98/59 L 95 Laboratory Results Short CBC 02/03/22 Range/Units 05:22 WBC 13.26 H (4.8-10.8) K/uL Hgb 9.4 L (12.0-16.0) g/dL Hct 28.2 L (37-47) % Plt Count 224 (130-400) K/uL BMP 02/03/22 05:22 Sodium 137 Potassium 4.4 Chloride 109 H Carbon Dioxide 22 BUN 21 Creatinine 0.91 Glucose 173 H Calcium 8.2 L Medications Administered Current Inpatient Medications Acetaminophen (Acetaminophen 500 Mg Tab) 1,000 mg PO Q8 [facility] Stop: 03/04/22 14:59 Last Admin: 02/03/22 05:43 Dose: 1,000 mg Documented by: Ascorbic Acid (Ascorbic Acid 500 Mg Tab) [facility] Stop: 03/05/22 08:59 Last Admin: 02/03/22 08:09 Dose: 500 mg Documented by: Aspirin (Aspirin 81 Mg Ectab) 81 mg PO BID [facility] Stop: 03/04/22 20:59 Last Admin: 02/03/22 08:09 Dose: 81 mg Documented by: Atenolol (Atenolol 50 Mg Tablet) 50 mg PO QAM [facility] Stop: 03/05/22 08:59 Last Admin: 02/03/22 08:08 Dose: 50 mg Documented by: Bisacodyl (Bisacodyl 10 Mg Supp) 10 mg ND DAILY PRN PRN Reason: Constipation Stop: 03/04/22 14:36 Cyanocobalamin (Cyanocobalamin (B-12) 500 Mcg Tablet) 1,000 mcg [facility] [place] Stop: 03/05/22 08:59 Last Admin: 02/03/22 08:08 Dose: 1,000 mcg Documented by: Dextrose (Dextrose 50% 50 Ml Syringe) 25 - 50 ml IV UD PRN; Protocol PRN Reason: Hypoglycemia Protocol Stop: 03/04/22 15:14 Diphenhydramine HCl (Diphenhydramine 50 Mg/Ml Vial) 25 mg IV Q8H PRN PRN Reason: Itching Stop: 03/04/22 14:36 Docusate Sodium (Docusate Sodium 100 Mg Cap) 100 mg PO BID [facility] Stop: 03/04/22 20:59 Last Admin: 02/03/22 08:08 Dose: 100 mg Documented by: Duloxetine HCl (Duloxetine Hcl 60 Mg Cap) 60 mg PO QAM [facility] Stop: 03/05/22 08:59 Last Admin: 02/03/22 08:08 Dose: 60 mg Documented by: Glucagon (Glucagon For Inj 1 Mg Vial) 1 mg IM UD PRN; Protocol PRN Reason: Hypoglycemia Protocol Stop: 03/04/22 15:14 Glucose (Glucose 40% Gel 15 Gm Tube) 15 - 30 gm PO UD PRN; Protocol PRN Reason: Hypoglycemia Protocol Stop: 03/04/22 15:14 Glucose (Glucose 10 Tabs/Tube) 4 - 8 tabs PO UD PRN; Protocol PRN Reason: Hypoglycemia Protocol Stop: 03/04/22 15:14 Hydromorphone HCl (Hydromorphone Inj 0.5 Mg/0.5 Ml Syr) 0.5 mg IV Q4H PRN PRN Reason: Pain or Pre PT Stop: 02/16/22 14:36 Insulin Aspart (Insulin Aspart Per Unit) 0 units SC [facility] Stop: 03/04/22 16:29 Last Admin: 02/03/22 08:13 Dose: 11 units Documented by: Lisinopril (Lisinopril 20 Mg Tab) 20 mg PO QAM [facility] Stop: 03/05/22 08:59 Loratadine (Loratadine 10 Mg Tab) [facility] [place] Stop: 03/05/22 08:59 Last Admin: 02/03/22 08:08 Dose: 10 mg Documented by: Magnesium Hydroxide (Magnesium Hydroxide Susp 30 Ml Udc) 30 ml PO Q6H PRN PRN Reason: Constipation Stop: 03/04/22 14:36 Melatonin (Melatonin 3 Mg Tab) 9 mg PO HS [facility] Stop: 03/04/22 20:59 Last Admin: 02/02/22 20:55 Dose: 9 mg Documented by: Miscellaneous (Carbohydrates For Hypoglycemia ) 15 - 30 gm PO UD PRN PRN Reason: Hypoglycemia Treatment Stop: 03/04/22 15:14 Miscellaneous Information (Pharmacy Glycemic Mgmt Consult) 1 ea N/A UD PRN PRN Reason: Consult Stop: 03/04/22 14:36 Multivitamins (Multivitamin Tab) [facility] [place] Stop: 03/05/22 08:59 Last Admin: 02/03/22 08:08 Dose: 1 tab Documented by: Naloxone HCl (Naloxone Hcl 0.4 Mg/1 Ml Vial/Carp) 0.1 mg IV Q5M PRN PRN Reason: Oversedation/Resp Depression Stop: 03/04/22 14:36 Ondansetron HCl (Ondansetron Inj 2 Mg/Ml 2 Ml Vial) 4 mg IV Q6H PRN PRN Reason: Nausea And Vomiting Stop: 03/04/22 14:36 Oxycodone HCl (Oxycodone Hcl Ir 5 Mg Tab (Immediate Release)) 5 - 10 mg PO Q4H PRN PRN Reason: Pain or Pre PT Stop: 02/16/22 14:36 Last Admin: 02/03/22 09:29 Dose: 10 mg Documented by: Pantoprazole Sodium (Pantoprazole 40 Mg Tab) 40 mg PO BID [facility] Stop: 03/04/22 20:59 Last Admin: 02/03/22 08:08 Dose: 40 mg Documented by: Rosuvastatin Calcium (Rosuvastatin Calcium 20 Mg Tab) 20 mg PO [facility] Stop: 03/04/22 20:59 Last Admin: 02/02/22 20:53 Dose: 20 mg Documented by: Sennosides (Senna 8.6 Mg Tab) 17.2 mg PO [facility] Stop: 03/04/22 20:59 Last Admin: 02/02/22 20:53 Dose: 17.2 mg Documented by: Vitamin D (Cholecalciferol 1,000 Units 25 Mcg Tab) 1,000 units PO [facility] [place] Stop: 03/05/22 08:59 Last Admin: 02/03/22 08:08 Dose: 1,000 units Documented by:
--- NOTE | 2022-02-06 09:34 | Discharge Summary ---
Date of Service February 06, 2022 Admission HPI Per Admitting Provider This is a patient who previously undergone what appears to be a left hip core decompression of the femoral head. She denies any previous injury to the left. She presented with left groin pain and a history of an implant placed within the femoral head. CT scan noted arthritic changes at the hip joint. She is now being set up for total hip arthroplasty. Admission Exam Per Admitting Provider Physical Exam Constitutional: well developed and well nourished; no acute distress ENMT: external ear and nose normal, oropharynx normal Neck: trachea midline Respiratory: normal respiratory effort, lungs clear to auscultation Cardiovascular: Rate/Rhythm: regular rate and regular rhythm Gastrointestinal (Abdomen): normal bowel sounds, soft, nontender, no hepatosplenomegaly Musculoskeletal: Hip: + surgical incision (Healed incision lateral hip), + limited ROM of hip (Left internal and external rotation), + joint line tenderness (Left groin) and + JOSS test positive (Left); no skin erythema and no ecchymosis Skin: no rashes, warm and dry Trauma: no evidence of skin trauma Neurologic: normal touch/pain/proprioception Psychiatric: A+Ox3, euthymic affect Speech: normal rate/rhythm/volume of speech Lymphatic: no cervical or axillary lymphadenopathy Principal Diagnosis Left Hip Osteoarthritis Discharge Data Allergies Allergy/AdvReac Type Severity Reaction Status Date / Time Corticosteroids Allergy Intermediate heart Verified 02/02/22 07:02 (Glucocorticoids) palpitations, severe upset stomach morphine Allergy Intermediate severe Verified 02/02/22 07:02 itching and felt like "bugs were crawling on me" meloxicam [From Mobic] AdvReac Mild irritates Verified 02/02/22 07:02 stomach Consultations 02/02/22 05:00 Consult Hospitalist Routine Procedures Performed Operation Date: 02/02/22 08:45 Actual Procedures p Total Hip Arthroplasty Uncemented(Left) - DO lan Boland Left Total Hip Arthroplasty - Cemented,(Left) - DO lan Boland Removal Hardware(Left) - Jeremy Montejo DO Hospital Course (1) Osteoarthritis of left hip: Patient:CASH MARRERO Admit Date:02/02/22 MR#:[id number] Att Phy:Jeremy Montejo D.O. Acct ID:[id number] [place] Phy:Chucky Sanchez MD Date:1955 Fam Phy: Age:66 Location:3E Sex:F Room/Bed:[facility] cc: ~ *NOTICE TO RECEIVING DEMOCRAT/AGENCY This information is strictly Confidential and protected under [place] law. [place] law prohibits you from making any further disclosure of this information unless further disclosure is expressly permitted by the written consent of the person to whom it pertains or is authorized by law. A general authorization for the release of medical or other information is not sufficient for this purpose. Hospital accepts no responsibility if the information is made available to any other person, INCLUDING THE PATIENT. Date of Service February 03, 2022 Assessment & Plan (1) Osteoarthritis of left hip: Plan: Plan for discharge today if does well with therapy. DVT prophylaxis- MIGDALIA, ASA BID Home with HH Admission and Anticipated Discharge Date Admission Date: February 02, 2022 Supervising Physician Co-Signing Physician Notes Patient seen and examined. Agree with VIRGIE Dennis's note as above. Patient doing well after left total hip arthroplasty yesterday. Ambulating with therapy. Hip precautions reviewed. As long she does well with therapy, plan for discharge home today. Subjective Patient sitting in chair resting comfortably. Denies any complaints today. Pain controlled. Physical Exam Physical Exam: Toes mobile, NVI. Calves soft, non tender. Dressing in place. Hemovac draining Results & Data ([facility]) Vital Signs (Past 12 Hours) Vital Signs Temp Pulse Resp BP BP Pulse Ox 02/03/22 07:37 36.7 C 92 H 17 102/63 95 02/03/22 04:01 36.8 C 81 16 97/55 LB 94 02/02/22 23:14 36.7 C 86 16 98/59 L 95 Signed By: <Electronically signed by Michelle Dennis PA-C> 02/03/22 1007 <Electronically signed by Ventura Fajardo M.D.> 02/03/22 1021 Total Time Total Time Spent Total Time Spent (In Minutes): 5 Discharge Plan Discharge Items Patient Disposition: Home - Home Health Services Reason For Visit: Left Hip Osteoarthritis Discharge Diagnosis: Left SUZANNA Activity: Per Instructions section Non-emergency contact: Surgeon Call non-emergency contact if: your pain is not controlled, your temperature is above 101.5, your wound has increased redness and your wound has increased drainage Follow-up/Referrals: Chucky Sanchez MD [Primary Care Provider] - Diet: Carb Consistent or DM2 Addtl Attending Provider Instructions: ACTIVITY RECOMMENDATIONS: SELF CARE INSTRUCTIONS AFTER TOTAL HIP REPLACEMENT Until the incision and soft tissues around your hip have healed, there is a possibility that the hip prosthesis could dislocate. A. Observe the following precautions to prevent dislocation: 1. Don't bend your hip greater than 90 degrees. 2. Avoid crossing your legs or ankles while standing or lying. 3. Sit with your feet placed 6 inches apart. 4. When sitting, keep your knees below your hips. Sit on a firm surface, avoid deep, soft chairs and couches. Use an elevated toilet seat in the bathroom. 5. Don't bend over at the waist. Use a long handled shoehorn and a sock aid to help you put on your shoes and socks. A director supply chain can help you potato picker objects that are too high or too low to reach. 6. Keep car riding to a minimum for at least one month after surgery. B. Your balance may be shaky for a while. Use crutches or a walker until directed by your doctor. C. Use hand rails when walking on stairs. D. Wear low heeled shoes with non-slip soles. E. Be sure that your floors are free of things that could trip you - throw rugs, electrical cords, small objects. Avoid wet and waxed floors, especially with crutches and canes. F. Try to walk several times a day with rest periods between. G. Continue with all the exercises taught to you in the hospital. Again, make walking a part of your daily routine. H. It is okay to shower if minimal to no drainage from incision. No baths. Do not soak wound. I. Physical Therapy as instructed by your Physician. SPECIAL CARE INSTRUCTIONS: VERY IMPORTANT TO READ AND REVIEW A. You may still be at risk for phlebitis and blood clots. 1. Wear surgical stockings (MIGDALIA hose) for one month, 20 hours daily, after surgery to improve circulation and reduce swelling. 2. Take Coumadin, Xarelto, Lovenox or Aspirin (blood thinning medications), as directed by your doctor. 3. Have a pro-time (blood test) drawn according to your doctor's instructions. B. We encourage and will assist you in choosing a home-health agency of your choice. Home health nurses and therapists will monitor your temperature, wound healing and progress in exercise and walking. Home health nurses may also draw the blood for the pro-time test. They may instruct you in decreasing or increasing the amount of Coumadin you take. C. You must take antibiotics before having dental work, bladder, bowel and other surgery. Your doctor will provide you with a permanent card to carry describing precautions. D. Call [facility] if you have a temperature of 101 or greater, redness or swelling around the incision, cloudy drainage from incision, or sudden increase in pain in your hip, not relieved by your regular pain medication. E. Please call the office at if you have any concerns or questions about your operation or recovery. FOLLOW UP VISIT: If appointment is not already scheduled: Please call [facility] to make a follow-up appointment for One month after your surgery at . Pending Studies at Discharge: No Stand-Alone Forms: My [facility], Opioid Pain Management, Smoking Cessation Medications and DC Order Prescriptions: New aspirin 81 mg Tablet,Delayed Release (Dr/Ec) 81 mg PO BID 28 Days Qty: 56 RF: 0 sennosides [Senokot] 8.6 mg Tablet 17.2 mg PO HS 28 Days Qty: 56 RF: 0 oxycodone 5 mg Tablet 5 - 10 mg PO Q4H PRN (Reason: pain) Qty: 30 RF: 0 docusate sodium 100 mg Capsule 100 mg PO BID 28 Days Qty: 56 RF: 0 multivitamin with folic acid [Daily-Sharla (with folic acid)] 400 mcg Tablet 1 tab PO QAM 28 Days Qty: 28 RF: 0 Continued cetirizine [Zyrtec] 10 mg Tablet 10 mg PO QAM RF: 0 lisinopril 20 mg Tablet 20 mg PO QAM RF: 0 glipizide 10 mg Tablet 10 mg PO BID RF: 0 cyanocobalamin (vitamin B-12) [Vitamin B-12] 1,000 mcg Tablet 1,000 mcg PO QAM RF: 0 pantoprazole [Protonix] 40 mg Tablet,Delayed Release (Dr/Ec) 40 mg PO BID RF: 0 ascorbate calcium (vitamin C) 500 mg Tablet 500 mg PO QAM RF: 0 atenolol 50 mg Tablet 50 mg PO QAM RF: 0 loratadine 10 mg Tablet 10 mg PO QAM RF: 0 rosuvastatin [Crestor] 20 mg Tablet 20 mg PO HS RF: 0 duloxetine [Cymbalta] 60 mg Capsule,Delayed Release(Dr/Ec) 60 mg PO QAM RF: 0 biotin 1 mg Tablet 1 mg PO QAM RF: 0 cholecalciferol (vitamin D3) [Vitamin D3] 25 mcg (1,000 unit) Tablet 25 mcg PO QAM RF: 0 acetaminophen 500 mg Tablet 1,000 mg PO TID RF: 0 semaglutide 1 mg/dose (2 mg/1.5 mL) Pen Injector 1 mg SUBCUT WK RF: 0 Discharge Orders: Discharge Order (Routine); Ordered 02/03/22 Ordered By: Michelle Aviles/Other Patient Handouts: Hip Safety Bed Steps, Hip Precautions, Hip Safety: Sleeping Positions, Hip Replace Sitting Safely, Hip Safety: Using the Toilet, After Hip Replacement: Home Safety Admission Data Admit Date/Time: 02/02/22 12:35 Attending Provider: Jeremy Montejo Admit Provider: Jeremy Montejo Primary Care Provider: Chucky Sanchez Other Providers: Juan C Leonard ; [facility],Home Healthcare Other Interventions: Discharge Summary Assessment (RN) Last Done: 02/03/22 11:55
== END 2022-02-03 15:28 | disposition home health service (06) ==
LOC: ASU 06:37 → 3E 06:37